=== PATIENT | female | born 1980 | race Caucasian/White ===

== ENCOUNTER → 2016-12-02 | Outpatient (CLI) | payer OTHER ==
--- NOTE | 2016-12-02 17:15 | MR ---
EXAMINATION TYPE: MR shoulder RT wo con DATE OF EXAM: 12/02/2016 2:18 PM COMPARISON: NONE HISTORY: pain in rt shoulder TECHNIQUE: Multiplanar, multisequence imaging of the right shoulder is performed without contrast. FINDINGS: Rotator Cuff: No complete tear is evident. There is fluid within the subacromial bursa suggesting the perforation. The perforation site is not identified. There is acromioclavicular joint hypertrophy wi th downward spurring contributing to some impingement of the supraspinatus tendon. Findings could be related to moderate tendinosis of the supraspinatus tendon. Acromioclavicular Joint: Hypertrophy Glenohumeral Joint: Preserved Labrum: The labrum appears grossly intact given limitation of non-arthrogram study. Biceps Tendon: The long head of biceps is in normal location within bicipital groove. Bone marrow signal: Small subchondral cysts are within the insertion site region of the supraspinatus tendon. No tendon or muscle retraction is evident. Other: No additional significant abnormality is appreciated. IMPRESSION: 1. Small amount of fluid within the subacromial bursa. Clinical correlation for moderate tendinosis i s recommended. Perforation is not excluded.
== END | disposition home or self-care (01) ==
LOC: RADMRIMAIN 13:45
PROVIDERS: ATTEND Family Medicine
DX: M25.411 Effusion, right shoulder (principal); M25.511 Pain in right shoulder

== ENCOUNTER → 2017-02-15 | Outpatient (CLI) | payer OTHER ==
--- NOTE | 2017-02-15 14:57 | XR ---
EXAMINATION TYPE: XR chest 2V DATE OF EXAM ORDERED: 02/15/2017 1:24 PM HISTORY: Z01.818 Pre-surgery. REFERENCE: None. FINDINGS: The lungs are clear. Pleural spaces are clear. Heart size is normal. IMPRESSION: NORMAL CHEST.
== END | disposition home or self-care (01) ==
LOC: RADXRMAIN 13:14
PROVIDERS: ATTEND Family Medicine
DX: Z01.818 Encounter for other preprocedural examination (principal)
CPT/HCPCS: 71020

== ENCOUNTER → 2018-01-17 | Outpatient (CLI) | payer OTHER ==
--- NOTE | 2018-01-17 15:58 | XR ---
Right wrist HISTORY: Right wrist pain 4 views of the right wrist No comparisons Bone mineralization is maintained. Alignment is normal. Some remodeling present at the radiocarpal tiffany int is noted. No fracture or dislocation. IMPRESSION: No acute abnormality. Wrist MRI may be of benefit. There may be some bone remodeling at t he radiocarpal joint.
== END | disposition home or self-care (01) ==
LOC: RADXRMAIN 13:39
PROVIDERS: ATTEND Physician Assistant
DX: M25.531 Pain in right wrist (principal)

== ENCOUNTER → 2018-03-26 | Outpatient (CLI) | payer OTHER ==
--- NOTE | 2018-03-27 23:34 | MR ---
History wrist pain. Comparison none. TECHNIQUE: Multiplanar multiecho imaging of the right wrist was performed with no contrast. FINDINGS: There is a somewhat rounded 7 mm area of fluid increased fluid signal in the medial aspect of the yoav ate bone consistent with degenerative cyst formation. The other carpal bones appear intact. There is some narrowing of the radiocarpal joint space. There is increased fluid around the radial styloid process and scaphoid bone. There is also similar i ncreased fluid around the ulnar styloid process and the triquetrum. There is a 5 x 3 mm area of cysti c fluid collection on the dorsum of the wrist at the posterior scaphoid consistent with sinonasal cys t formation. I see no fracture line. The visualized metacarpals appear intact. Distal radius and ulna appear intact. Flexor and extensor tendons of the wrist appear intact. There is some fluid however a round the extensor tendons of the thumb and index finger. The remainder of the exam is unremarkable. CONCLUSION: Multiple areas of fluid consistent with synovitis and synovial cyst formation adjacent to the radial styloid process, the ulnar styloid process and also dorsal aspect of the scaphoid bone. No fracture. Degenerative cyst formation in the lunate. Osteoarthritic narrowing of the radiocarpal joint space. F luid around extensor tendons of the thumb and index finger consistent with teno synovitis.
== END | disposition home or self-care (01) ==
LOC: RADMRIMAIN 12:50
PROVIDERS: ATTEND Family Medicine
DX: M19.031 Primary osteoarthritis, right wrist (principal); M67.833 Other specified disorders of tendon, right wrist

== ENCOUNTER → 2018-06-07 | Outpatient (CLI) | payer OTHER ==
--- NOTE | 2018-06-07 20:08 | CONS ---
CONSULTATION Consultation is for sleep apnea. A 37-year-old obese female patient coming in with symptoms of loud snoring, and symptoms that the patient is feeling sleepy and foggy and she is waking up tired during the day and her sleep quality is poor. She goes to bed between 11:00 and midnight and she wakes up 6:00 a.m. in the morning. 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 On weekends, she sleeps between 1:00 a.m. until 10:30 a.m. in the morning. She feels her sleep quality is poor and she has gained around 10 pounds over the past 1 year. Her [place] Score is at 12. She does not fall asleep during day-to-day activities or driving. She occasionally wakes up in the middle of the night to go to the bathroom and urinate. She does not watch TV in her bedroom. She sleeps on her side. She drinks no alcoholic beverages. She drinks coffee, a few glasses during the day. PAST MEDICAL HISTORY: Obesity, generalized anxiety disorder, mild bronchial asthma, chronic environmental allergies. SURGICAL HISTORY: Includes right wrist cyst removal, right shoulder surgery for resection of spurs, bilateral foot surgery and tubal ligation. DRUG ALLERGIES: Seasonal allergies. No drug allergies are reported. OUTPATIENT MEDICATION: Includes: 1. Acyclovir 4 mg twice a day. 2. Prozac 40 mg p.o. daily. 3. Hydrochlorothiazide 25 mg p.o. per day. 4. Protonix 40 mg p.o. daily. 5. Motrin 800 mg as needed. 6. Benadryl 25 mg as needed for allergies. SOCIAL HISTORY: The patient is a nonsmoker. No history of alcohol. No history of IV drugs. FAMILY HISTORY: Grandmother with obstructive sleep apnea. REVIEW OF SYSTEMS: A 12-point review of systems was done. Positive findings are mentioned above in history of present illness. No history of any choking or gasping for air at night. No restlessness in lower extremities. No grinding of the teeth. No sleepwalking. No anxiety or panic attacks. No palpitations. She has issues with feeling tired and sleepy and having some problems with memory and concentration. BP is 138/54, pulse 90, respirations 16, temperature 98, saturation 94% on room air. Weight is 199, height is 61 inches. BMI 37.6, neck size is 15, [place] score is at 12. GENERAL APPEARANCE: Calm, comfortable. HEAD: Atraumatic, normocephalic. NECK: Mallampati class IV. There is no goiter or neck mass. She has a thick and short neck. LUNGS: Clear to auscultation. HEART: Sounds are regular rate and rhythm. Normal S1, S2. No S3, S4. No murmurs. ABDOMEN: Soft, nontender. No organomegaly. EXTREMITIES: No edema. No cyanosis or clubbing. IMPRESSION: 1. Hypersomnia with possible obstructive sleep apnea, current [place] score is 12. 2. Obesity with a BMI of 37.6. 3. Loud snoring. 4. Chronic anxiety. 5. Depression. 6. Mild bronchial asthma. 7. Environmental allergies. PLAN: 1. Encourage weight loss. 2. Sleep quantity is adequate and may need to look at the patient's sleep quality by obtaining a screening polysomnogram looking for any significant sleep breathing disorder and treat accordingly. Will continue to follow. MMODL / IJN: [id number] /
== END | disposition home or self-care (01) ==
LOC: SLEEP 16:01
PROVIDERS: ATTEND Internal Medicine Critical Care Medicine
DX: G47.10 Hypersomnia, unspecified (principal); F32.9 Major depressive disorder, single episode, unspecified; J45.909 Unspecified asthma, uncomplicated; F41.9 Anxiety disorder, unspecified; E66.9 Obesity, unspecified; Z68.37 Body mass index [BMI] 37.0-37.9, adult; Z91.09 Other allergy status, other than to drugs and biological substances; Z98.890 Other specified postprocedural states; Z91.048 Other nonmedicinal substance allergy status; Z79.1 Long term (current) use of non-steroidal anti-inflammatories (NSAID)
CPT/HCPCS: 99211

== ENCOUNTER → 2020-12-03 | Outpatient (CLI) | payer OTHER ==
--- NOTE | 2020-12-03 16:21 | PN ---
PROGRESS NOTE This is a 40-year-old female patient who was diagnosed having mild obstructive sleep apnea a few years back and the patient had an AHI of 9.5. The patient has been very compliant with her CPAP unit and the patient has been utilizing her machine for the past 2 years without any interruption. Nevertheless, on today's evaluation, she tells that she is not seeing the benefit that she expected. While on and off the treatment, the patient has not seen major improvement in her sleep quality. In fact, sometimes she feels better when she is off the treatment. Note that she started off with a mild disease with an AHI of 9.5 and the patient has not had any major weight gain or weight loss over the past 2 years. I checked compliance data and I noted that the patient's compliance has been gradually going down as the patient is not seeing much of the clinical benefit. Her air use for more than 4 hours is at 13 over the past 30 days and she has been averaging around 6 hours per night. On the days that she uses the machine, her AHI is down to 3.2 while on treatment with a leak of 30 L/minute. She has comorbidities. She has history of bronchial asthma which is currently inactive and stable and she has chronic anxiety and depression. She is on Prozac for now. Her BP is elevated at 155/103 and the patient is currently on hydrochlorothiazide. No chest pain. No heartburn. She maintains a good sleep schedule and she wakes up and goes to bed at same time at all times. No episodes of falling asleep while driving. No episodes of falling asleep during routine day-to-day activities. Her anxiety level and depression have been well controlled for now. No restlessness in the lower extremities. REVIEW OF SYSTEMS: Fourteen-point review of system was done and positive findings are mentioned above in history of present illness. The patient has an Kingf[place] Score of 11. MEDICATION: Medications include ibuprofen 800 mg on an as needed basis, Prozac 40 mg p.o. daily, acyclovir 4 mg twice a day, tramadol 50 mg twice on an as-needed basis, Prevacid 30 mg p.o. daily, hydrochlorothiazide 25 mg p.o. daily, Fioricet 40 mg as needed, Flexeril 10 mg on a p.r.n. basis, latanoprost eye drops and eye drops. SOCIAL HISTORY: She is a former smoker, quit in 2011. No history of alcoholism. No history of IV drugs. PHYSICAL EXAMINATION: VITAL SIGNS: BP 155/103, pulse 96, respirations 16, temperature 98.6, saturation 96% on room air. Height is 5 feet 0 inch, weight is 201, BMI 39.2. GENERAL APPEARANCE: Calm, comfortable. HEAD: Atraumatic, normocephalic. NECK: Supple. There is no JVD. No goiter or neck masses. LUNGS: Clear to auscultation. HEART: Sounds are regular rate and rhythm. Normal S1, S2. No S3, no S4. No murmurs. ABDOMEN: Soft, nontender. No organomegaly. EXTREMITIES: No edema. No cyanosis or clubbing. NEUROLOGIC: Awake and alert. There is no focal neurological deficits. PSYCHIATRIC: Positive for the anxiety and depression. IMPRESSION: 1. Obstructive sleep apnea mild in severity with an AHI of 9.5. Treatment has not significantly impacted the patient's sleep quality and the patient has not felt much different despite being compliant on the treatment for the past 2 years. Over the past few months, her compliancy has gone down. 2. Obesity with a stable weight of 201 pounds with a body mass index of 39.2. 3. Hypertension with elevated blood pressure. 4. Chronic pain. 5. Chronic anxiety/depression, currently on Prozac. 6. Hypertension with poorly controlled blood pressure. PLAN: 1. We will refer this patient back to primary care physician for tighter blood pressure control. 2. I switched this patient to an APAP mode and I kept her on a minimum pressure of 4 and maximum pressure of 10 and this will be the last effort to see if the patient will see if it shows any positive impact on her sleep apnea. Meanwhile, the patient is going to have another home sleep study to re-evaluate the presence and severity of sleep apnea and decide if treatment is still warranted knowing that her sleep apnea was mild at baseline. A final decision will be done based on her results of the home sleep study and based on her response with APAP mode. 3. We will continue to follow. MMYESIL / LEONARDAN: [id number] /
== END | disposition home or self-care (01) ==
LOC: SLEEP 15:11
PROVIDERS: ATTEND Internal Medicine Critical Care Medicine
DX: G47.33 Obstructive sleep apnea (adult) (pediatric) (principal); E66.9 Obesity, unspecified; I10 Essential (primary) hypertension; G89.29 Other chronic pain; F41.9 Anxiety disorder, unspecified; F32.9 Major depressive disorder, single episode, unspecified; Z68.39 Body mass index [BMI] 39.0-39.9, adult; Z79.899 Other long term (current) drug therapy